=== PATIENT | female | born 1970 | race African-American/Black ===

== ENCOUNTER 2019-03-03 04:28 | Emergency (ER) | payer SELFPAY ==
[~2019-03-03] VITALS: Ht 172.7 cm; Wt 91.0 kg
[~2019-03-03 04:28] MED LIST: BENAZEPRIL; METOPROL
[2019-03-03] MEDS ORDERED: IPRATROPIUM BROMIDE (0.02%) 0.5MG/2.5ML NEB HHN STA (04:36)
[2019-03-03] MEDS ORDERED: ALBUTEROL (0.083%) 2.5MG/3ML NEB HHN STA ×2 (04:36→06:19)
[2019-03-03] MEDS ORDERED: PREDNISONE 20MG TABLET PO STA (04:36)
[2019-03-03] MEDS ORDERED: CLONIDINE 0.2MG TABLET PO NR (05:15)
[2019-03-03] MEDS ORDERED: DIPHENHYDRAMINE 50MG/ML VIAL IV ONE (05:15)
[2019-03-03 07:07] VITALS: BP 132/80
== END 2019-03-03 07:08 | disposition home or self-care (01) ==
LOC: ER 04:28
DX: J45.901 Unspecified asthma with (acute) exacerbation (principal); I10 Essential (primary) hypertension; T63.441A Toxic effect of venom of bees, accidental (unintentional), initial encounter; Y92.9 Unspecified place or not applicable
CPT/HCPCS: 94640; 94644; 96374; 99285; J1200; J7512; J7611; Z7610

== ENCOUNTER 2023-12-02 15:03 | Emergency (ER) | payer MEDICAID ==
[~2023-12-02] VITALS: Ht 175.3 cm; Wt 98.0 kg
[2023-12-02 15:29] VITALS: PULSE 100; RESP 24; O2SAT 96
[2023-12-02] MEDS: ALBUTEROL (0.083%) 2.5MG/3ML NEB HHN STA (15:29)
[2023-12-02] MEDS: FAMOTIDINE 20MG/2ML VIAL IV ONE (15:30)
[2023-12-02] MEDS: METHYLPREDNISOLONE SOD SUCC 125MG/2ML (ACT-O-VIAL) IV ONE (15:30)
[2023-12-02] MEDS: EPINEPHRINE 1:1000 1 MG/ML AMP IM ONE (15:31)
[2023-12-02] MEDS: DIPHENHYDRAMINE 50MG/ML VIAL IV ONE (15:31)
[2023-12-02] MEDS: SODIUM CHLORIDE 0.9% 1,000 ML IV SCH (15:32)
[2023-12-02 15:56] LABS: BASOPHILS % 0.8 % (0.0-2.0); EOSINOPHILS % 2.4 % (0.0-5.0); HEMATOCRIT. 30.9 % (36.0-48.0); HEMOGLOBIN. 8.9 g/dL (12.0-16.0); LYMPHOCYTES % 39.5 % (20.0-50.0); MEAN CORPUSCULAR HEMOGLOBIN 19.8 pg (28.0-32.0); MEAN CORPUSCULAR HGB CONC 28.9 g/dL (31.0-37.0); MEAN CORPUSCULAR VOLUME 68.4 fL (81.0-99.0); MEAN PLATELET VOLUME 8.3 fl (7.4-10.4); MONOCYTES % 4.8 % (2.0-8.0); NEUTROPHILS % 52.5 % (40.0-76.0); PLATELET 422 x1000/uL (130-400); RED BLOOD CELL COUNT 4.52 mill/uL (4.2-5.4)
[2023-12-02 16:00] LABS: ADD RBC MORPHOLOGY YES; DIFFERENTIAL COMMENT 1
[2023-12-02 16:06] LABS: CALCIUM 8.7 mg/dL (8.7-10.4); CARBON DIOXIDE 19 mEq/L (21-32)
[2023-12-02 16:07] LABS: CHLORIDE 105 mEq/L (98-107); POTASSIUM 3.9 mEq/L (3.5-5.1); SODIUM 136 mEq/L (136-145)
[2023-12-02 16:11] LABS: CREATININE 0.9 mg/dL (0.6-1.0); GLUCOSE 111 mg/dL (70-105); UREA NITROGEN BLOOD 5 mg/dL (9-23)
[2023-12-02] MEDS ORDERED: DIPH25CA83 MT (16:28)
[2023-12-02] MEDS ORDERED: EPIN0.3P3 IM (16:28)
[2023-12-02] MEDS ORDERED: P20 MT (16:28)
[2023-12-02 17:11] LABS: PLATELET ESTIMATE INCREASED
[2023-12-02 17:14] LABS: ANISOCYTOSIS 2+; HYPOCHROMASIA 2+; MICROCYTOSIS 3+
[2023-12-02 17:15] LABS: OVALOCYTES 1+
[2023-12-02 17:16] VITALS: BP 180/89; PULSE 86; RESP 16; TEMP 98
== END 2023-12-02 17:34 | disposition home or self-care (01) ==
LOC: ER 15:03
DX: T63.441A Toxic effect of venom of bees, accidental (unintentional), initial encounter (principal); D64.9 Anemia, unspecified; J45.909 Unspecified asthma, uncomplicated; I10 Essential (primary) hypertension; X58.XXXA Exposure to other specified factors, initial encounter; Y93.9 Activity, unspecified; Y92.89 Other specified places as the place of occurrence of the external cause; Y99.8 Other external cause status
CPT/HCPCS: 80048; 85025; 36415; 96361; 96372; 96374; 96375; 99284; J1200; J3490 ×2; J2919; Z7610 ×4